=== PATIENT | female | born 1975 | race Caucasian/White ===

== ENCOUNTER → 2019-02-11 | Outpatient (CLI) | payer BC ==
[2019-02-11 15:54] LABS: Basophils # (A) 0.1 k/uL (0-0.2); Basophils % (A) 1 %; Eosinophils # (A) 0.2 k/uL (0-0.7); Eosinophils % (A) 2 %; HCT 42.9 % (34.0-46.0); HGB 13.4 gm/dL (11.4-16.0); Lymphocytes # (A) 2.4 k/uL (1.0-4.8); Lymphocytes % (A) 27 %; MCH 27.1 pg (25.0-35.0); MCHC 31.3 g/dL (31.0-37.0); MCV 86.7 fL (80.0-100.0); Mean Platelet Volume 7.4; Monocytes # (A) 0.5 k/uL (0-1.0); Monocytes % (A) 5 %; Neutrophils # (A) 5.6 k/uL (1.3-7.7); Neutrophils % (A) 64 %; Platelet Count 310 k/uL (150-450); RBC 4.95 m/uL (3.80-5.40); RDW 13.8 % (11.5-15.5); WBC 8.8 k/uL (3.8-10.6)
== END | disposition home or self-care (01) ==
LOC: LABWHC1 14:34
PROVIDERS: ATTEND Obstetrics & Gynecology
DX: Z01.818 Encounter for other preprocedural examination (principal); Z01.812 Encounter for preprocedural laboratory examination; N92.0 Excessive and frequent menstruation with regular cycle; E10.9 Type 1 diabetes mellitus without complications
CPT/HCPCS: 85025; 93005

== ENCOUNTER 2019-02-21 07:53 | Day surgery (SDC) | payer BC ==
[2019-02-11 16:00] VITALS: BMI 40.3
[~2019-02-21 07:53] MED LIST: DEXAMETHASONE SOD PHOSPHATE 10 MG/ML 1 ML VIAL IV ONE; LACTATED RINGERS 1,000 ML IV SCH; MIDAZOLAM 2 MG/2 ML VIAL IV PRN; ONDANSETRON 4 MG/2 ML VIAL IVP ONE; Pre Op ABX Message 1 EACH MISC MISCELLANE ONE; SCOPOLAMINE 1.5MG/72HR PATCH TRANSDERM ONE
[2019-02-21 08:47] LABS: Glucose,Whole Blood 112 mg/dL (75-99)
[2019-02-21] MEDS ORDERED: MIDAZOLAM 2 MG/2 ML VIAL ONE (08:50)
[2019-02-21] MEDS ORDERED: KETOROLAC 30 MG/ML 1 ML VIAL ONE (08:50)
[2019-02-21] MEDS ORDERED: SUCCINYLCHOLINE CHLORIDE 100 MG/5 ML SYR IV ONE (08:50)
[2019-02-21] MEDS ORDERED: PROPOFOL 10 MG/ML 20 ML VIAL IV ONE (08:50)
[2019-02-21] MEDS ORDERED: LIDOCAINE 1% INJ 10MG/ML (20 ML MDV) ONE (08:50)
[2019-02-21] MEDS ORDERED: fentaNYL (PF) 50 MCG/ML 2 ML AMP ONE (08:50)
[2019-02-21] MEDS ORDERED: LIDOCAINE 1%-EPI 1:100,000 20 ML VIAL SQ ONE (09:32)
--- NOTE | 2019-02-21 09:43 | P.OP ---
Date of Procedure: 02/21/19 Preoperative Diagnosis: Menorrhagia Postoperative Diagnosis: Same Procedure(s) Performed: Diagnostic hysteroscopy and NovaSure endometrial ablation Anesthesia: MESERET Surgeon: Andreia Bergeron Estimated Blood Loss (ml): 5 IV fluids (ml): 300 Urine output (ml): 25 Pathology: none sent Condition: stable Disposition: PACU Operative Findings: Fluffy endometrium with no gross intracavitary lesions. Description of Procedure: After the patient and her were met in the preoperative holding area and all questions were answered, she was taken to the operating room where anesthetic was administered without incident. She was in positioned, prepped and draped in the dorsal lithotomy position. Bladder was drained for approximately 25 mL of clear urine. Speculum was placed in the vagina and the cervix was grasped anteriorly with a single-tooth tenaculum. Paracervical block with lidocaine plus epinephrine was placed. The uterus was sounded to 9 cm. The cervix was sequentially dilated with Hegar dilators to allow for passage of the diagnostic hysteroscope. The hysteroscope was introduced and the above findings were noted. The hysteroscope was removed and the cervix was further dilated to allow for introduction of the NovaSure ablation device. The device was inserted and the cavity assessment test was passed. Length was 5.0 cm, width 3.5 cm, power of 96 for a treatment cycle of 89 seconds. Following cessation of the treatment cycle the device was removed. The hysteroscope was reintroduced. Complete desiccation of the endometrium was appreciated. Hysteroscope was removed. Tenaculum was removed. Cervix was observed on there was scant active bleeding noted. Speculum was removed. Patient was awoken from anesthetic and transported to recovery area in stable condition.
[2019-02-21 09:45] VITALS: TEMP 96.8
[2019-02-21 09:58] LABS: Glucose,Whole Blood 117 mg/dL (75-99)
[2019-02-21] MEDS: HYDROmorphone 0.5 MG/0.5 ML SYRINGE IVP PRN ×2 (10:02→10:07)
[2019-02-21] MEDS ORDERED: LACTATED RINGERS 1,000 ML IV ONE (10:24)
[2019-02-21] MEDS ORDERED: IBUPROFEN 200 MG TAB PO ONE (11:10)
[2019-02-21 11:35] VITALS: BP 137/65; PULSE 99; RESP 18
== END 2019-02-21 11:48 | disposition home or self-care (01) ==
LOC: OR 07:53
PROVIDERS: ATTEND Obstetrics & Gynecology
DX: N92.0 Excessive and frequent menstruation with regular cycle (principal); K58.9 Irritable bowel syndrome, unspecified; E11.9 Type 2 diabetes mellitus without complications; F41.9 Anxiety disorder, unspecified; F42.9 Obsessive-compulsive disorder, unspecified; E66.01 Morbid (severe) obesity due to excess calories; Z79.4 Long term (current) use of insulin; Z79.899 Other long term (current) drug therapy; Z90.49 Acquired absence of other specified parts of digestive tract; Z68.41 Body mass index [BMI] 40.0-44.9, adult; Z82.49 Family history of ischemic heart disease and other diseases of the circulatory system; Z83.3 Family history of diabetes mellitus; Z82.5 Family history of asthma and other chronic lower respiratory diseases; Z82.62 Family history of osteoporosis
CPT/HCPCS: 84703; 58563; J2250; J1100; J2405; J2001; J3010; J1885; J0330; J2704; J1170

== ENCOUNTER → 2020-10-12 | Outpatient (CLI) | payer BC ==
--- NOTE | 2020-10-15 14:23 | MM ---
Reason for exam: screening (asymptomatic). Last mammogram was performed 3 years ago. History: Took hormonal contraceptives for 15 years. Physical Findings: A clinical breast exam by your physician is recommended on an annual basis and results should be correlated with mammographic findings. MG Screening Mammo w CAD Bilateral CC and MLO view(s) were taken. Prior study comparison: October 26, 2017, mammogram, performed at [facility]. September 08, 2016, mammogram, performed at [facility]. There are scattered fibroglandular densities. ASSESSMENT: Negative, BI-RAD 1 RECOMMENDATION: Routine screening mammogram of both breasts in 1 year.
== END | disposition home or self-care (01) ==
LOC: RADMAMWWP 13:46
PROVIDERS: ATTEND Family Medicine
DX: Z12.31 Encounter for screening mammogram for malignant neoplasm of breast (principal); Z79.3 Long term (current) use of hormonal contraceptives
CPT/HCPCS: 77067

== ENCOUNTER 2024-03-28 07:16 | Day surgery (SDC) | payer BC ==
[2024-03-25 11:44] VITALS: BMI 40.3
[~2024-03-28 07:16] MED LIST changes: -DEXAMETHASONE SOD PHOSPHATE 10 MG/ML 1 ML VIAL IV ONE; -LACTATED RINGERS 1,000 ML IV SCH; +LIDOCAINE 1% (10MG/ML) FOR IV START INTRADERMA PRN; -MIDAZOLAM 2 MG/2 ML VIAL IV PRN; -ONDANSETRON 4 MG/2 ML VIAL IVP ONE; -Pre Op ABX Message 1 EACH MISC MISCELLANE ONE; -SCOPOLAMINE 1.5MG/72HR PATCH TRANSDERM ONE
[2024-03-28] MEDS: IV FLUID CONTINUATION 1,000 ML IV ONE ×2 (07:47→08:42)
[2024-03-28 07:52] VITALS: TEMP 98
[2024-03-28 08:01] LABS: Glucose,Whole Blood 142 mg/dL (70-110)
[2024-03-28] MEDS: LACTATED RINGERS 1,000 ML IV SCH (08:01)
[2024-03-28] MEDS ORDERED: PROPOFOL 10 MG/ML 20 ML VIAL IV ONE (08:43)
--- NOTE | 2024-03-28 08:59 | P.PCN ---
Date of Procedure: 03/28/24 Procedure(s) Performed: BRIEF HISTORY: Patient is a 48-year-old pleasant white female scheduled for an elective colonoscopy as a part of evaluation of chronic intermittent diarrhea of several years duration associate with rectal urgency but no bleeding. She had an attempted colonoscopy by Dr. Kirkland 2 weeks ago at [facility] and according to the patient was incomplete. She is scheduled for a colonoscopy today. PROCEDURE PERFORMED: Colonoscopy with random biopsies. PREOPERATIVE DIAGNOSIS: Chronic intermittent diarrhea. IV sedation per Anesthesia. PROCEDURE: After informed consent was obtained, the patient, was brought into the endoscopy unit. IV sedation was administered by Anesthesia under continuous monitoring. Digital rectal examination was normal. Initially the Olympus CF-160 flexible video colonoscope was then inserted in the rectum, gradually advanced into the cecum without any difficulty. Careful examination was performed as the scope was gradually being withdrawn. Ileocecal valve and the appendiceal orifice were visualized and appeared normal. Prep was excellent. Mucosa of the cecum, ascending colon, transverse colon, descending colon, sigmoid colon, and rectum appeared normal. Biopsies were done from the ascending and descending colon to rule out microscopic/collagenous colitis. Retroflexion was performed in the rectum and no lesions were seen. The patient tolerated the procedure well. IMPRESSION: Normal-appearing colon from rectum to cecum with no evidence of colorectal neoplasia. RECOMMENDATIONS: Findings of this examination were discussed with the patient as well as her family. She was advised to follow-up with with the biopsy results. Recommended repeat screening colonoscopy in 10 years. Advised to use [id number] Imodium as needed. Follow-up in the office if she has any worsening symptoms..
[2024-03-28 09:05] VITALS: PULSE 95
[2024-03-28 09:19] VITALS: BP 114/72; RESP 16
== END 2024-03-28 09:37 | disposition home or self-care (01) ==
LOC: ORWHC2ENDO 07:16
PROVIDERS: ATTEND Internal Medicine Gastroenterology
DX: R19.7 Diarrhea, unspecified (principal); R15.2 Fecal urgency; E11.9 Type 2 diabetes mellitus without complications; R00.0 Tachycardia, unspecified; Z79.84 Long term (current) use of oral hypoglycemic drugs; Z79.899 Other long term (current) drug therapy
CPT/HCPCS: 81025; 88305; 45380; J2704

== ENCOUNTER → 2024-10-17 | Outpatient (CLI) | payer BC ==
--- NOTE | 2024-10-19 13:24 | MM ---
Reason for Exam: Screening (asymptomatic). Last mammogram was performed 1 year(s) and 2 month(s) ago. Patient History: Menarche at age 7. First Full-Term at age 28. Postmenopausal. Patient has history of breast feeding. Patient used Hormonal Contraceptives for 15 years. Risk Values: Alison 5 year model risk: 1.2%. NCI Lifetime model risk: 10.8%. Prior Study Comparison: 09/08/2016 Screening Mammogram, [facility]. 10/26/2017 Screening Mammogram, [facility]. 10/12/2020 Bilateral Screening Mammogram, [facility]. 10/17/2021 Bilateral Screening Mammogram, [facility]. 08/13/2023 Bilateral Screening Mammogram, [facility]. Tissue Density: The breasts are heterogeneously dense, which may obscure small masses. Findings: Analyzed By CAD. Right breast: There is no suspicious group of microcalcifications or new suspicious mass. Left breast: There is no suspicious group of microcalcifications or new suspicious mass. Overall Assessment: Negative, BI-RAD 1 Management: Screening Mammogram of both breasts in [address] [facility] will attempt to contact patient to return for supplemental views and ultrasound if indicated. Patient should continue monthly self-breast exams. A clinical breast exam by your physician is recommended on an annual basis. This exam should not preclude additional follow-up of suspicious palpable abnormalities. Note on Alison scores and lifetime risk: 1. A Alison score greater than 3% is considered moderate risk. If this is the case, consider specialist referral to assess eligibility for a risk reducing agent. 2. If overall lifetime risk for the development of breast cancer is 20% or higher, the patient may qualify for future screening with alternating mammogram and breast MRI. [facility], , 10/19/2024 1:21 PM. Electronically signed and approved by: Lui Suarez DO
== END | disposition home or self-care (01) ==
LOC: RADMAMWWP 14:32
PROVIDERS: ATTEND Obstetrics & Gynecology
DX: Z12.31 Encounter for screening mammogram for malignant neoplasm of breast (principal); R92.333 Mammographic heterogeneous density, bilateral breasts; Z78.0 Asymptomatic menopausal state; Z92.0 Personal history of contraception
CPT/HCPCS: 77063; 77067